=== PATIENT | male | born 1995 | race Caucasian/White ===

== ENCOUNTER 2022-02-24 23:29 | Emergency (ER) | payer OTHER, SELFPAY ==
--- NOTE | ~2022-02-24 | US_ITS ---
US scrotum doppler DATE: 02/25/2022 00:57 INDICATION: Left scrotal pain. No injury. TECHNIQUE: Real-time and color flow imaging and Doppler analysis of the scrotal contents COMPARISON: None FINDINGS: There is homogeneous symmetric echotexture of the testicles. No testicular mass lesion is d etected. There is blood flow to both testicles; no testicular torsion is detected. No hydroceles. Epididymis is normal. Left-sided varicocele is noted with varicose vein diameter up to approximately 3.2 mm.. IMPRESSION: Left varicocele Reviewed, dictated and finalized at [facility]. Reviewed, dictated and finalized at [facility]. IMPRESSION: Left varicocele
[2022-02-24 23:46] VITALS: BP 144/86; PULSE 68; RESP 16; TEMP 36.4; O2SAT 99
[2022-02-25 01:28] VITALS: BP 152/99; PULSE 68; RESP 16; O2SAT 98
[2022-02-25 01:34] LABS: Basophils Percent Auto 0.6 % (0.2-1.2); Eosinophils Absolute Auto 0.5 K/mm3 (0-0.3); Eosinophils Percent Auto 6.6 % (0-4.4); Hematocrit 48.6 % (42.0-52.0); Hemoglobin 16.1 g/dL (14.0-18.0); Immature Granulocyte Absolute 0.01 K/mm3 (0.00-0.031); Immature Granulocyte Percent A 0.1 % (0-0.5); Lymphocytes Absolute Auto 1.99 K/mm3 (0.9-3.2); Lymphocytes Percent Auto 29.1 % (18.3-44.2); Mean Corpuscular HGB Conc 33.1 g/dl (32-36); Mean Corpuscular Hemoglobin 29.1 pg (26-34); Mean Corpuscular Volume 87.9 fl (80-100); Mean Platelet Volume 10.7 fl (7.4-10.4); Monocytes Absolute Auto 0.5 K/mm3 (0.1-0.6); Monocytes Percent Auto 7.8 % (2.6-8.5); Neutrophils Absolute Auto 3.8 K/mm3 (1.3-6.7); Neutrophils Percent Auto 55.8 % (45.5-73.1); Platelet Count Result 218 k/mm3 (150-375); Red Blood Count 5.53 M/mm3 (4.6-6.20); Red Cell Distribution Width 12.6 % (11.5-14.5); White Blood Count 6.8 K/mm3 (4.5-10.0)
[2022-02-25 01:35] LABS: Appearance Urine Clear (Clear); Bilirubin Urine Negative (Negative); Blood Urine Negative (Negative); Color Urine Yellow (Yellow); Glucose Urine UA Negative (Negative); Ketones Urine Negative (Negative); Leukocyte Esterase Ur Negative LEU/UL (Negative); Nitrate Urine Negative (Negative); Protein Urine Negative (Negative); Specific Grav Ur 1.025 (1.001-1.035); Urobilinogen Urine 0.2 mg/dL (<2.0)
[2022-02-25 01:42] LABS: Add Urine Microscopic? NO; Bacteria Urine Trace /hpf; Mucus Urine Rare /lpf; RBC Urine 0-2 /hpf (0-2); WBC Urine 0-3 /hpf
[2022-02-25 01:43] LABS: Alanine Aminotransferase 48 U/L (6-50); Albumin Level 4.7 g/dL (3.5-5.1); Alkaline Phosphatase 73 U/L (38-126); Anion Gap 7 mmol/L (8-16); Aspartate Amino Transferase 43 U/L (17-59); Bilirubin,Total 0.7 mg/dL (0.2-1.3); Blood Urea Nitrogen 14 mg/dL (9-20); Calcium 9.1 mg/dL (8.4-10.2); Carbon Dioxide 28 mmol/L (22-30); Chloride 103 mmol/L (98-107); Estimated CRCL calculation 132 ml/min; Estimated Glomerular Filt Rate > 60; Glucose 91 mg/dL (65-110); Sodium 138 mmol/L (137-145)
[2022-02-25] MEDS: KETOROLAC 30 MG/ML VIAL (*BKC) IV PUSH (02:06)
--- NOTE | 2022-02-25 02:49 | ED.MALEGU ---
HPI - Male Genitourinary General Chief complaint: Urogenital-Male Stated complaint: Testicular pain Time Seen by Provider: 02/24/22 23:59 Source: patient Mode of arrival: ambulatory History of Present Illness HPI Narrative: 26-year-old male presents today with complaints of left testicular pain that started at 830 this evening. Pain rated a 5 out of 10. Patient states he was bending over when he felt pain to the left testicle. Patient denies any fevers, dysuria, urinary frequency, body aches, or chills. Patient denies any known trauma. Related Data Allergies Allergy/AdvReac Type Severity Reaction Status Date / Time haloperidol [From Haldol] AdvReac Other Verified 02/25/22 01:29 Review of Systems Review of Systems: CONSTITUTIONAL: Denies fever, chills, or sweats. EYES: Denies visual changes, redness, or discharge. ENT: Denies rhinorrhea, congestion, sore throat, or otalgia. CARDIOVASCULAR: Denies chest pain, palpitations, or edema. RESPIRATORY: Denies cough or dyspnea. GASTROINTESTINAL: Denies abdominal pain, nausea, vomiting, or diarrhea. GENITOURINARY: Left testicular pain. Denies dysuria or hematuria. SKIN: Denies rash or itching. MUSCULOSKELETAL: Denies back pain, joint pain, or myalgia. NEUROLOGIC: Denies headache, numbness, dizziness, or weakness. PSYCHIATRIC: Denies anxiety or depression. Exam Narrative: GENERAL: Well-appearing, well-nourished, and in no acute distress. HEAD: Normocephalic, atraumatic. EYES: PERRLA and EOMI. ENT: Nares clear, no rhinorrhea or epistaxis. Mucous membranes moist. Oropharynx without tonsillar hypertrophy exudate or other lesions. Bilateral TMs pearly noel nonbulging NECK: Supple. No adenopathy or masses. No carotid bruits or JVD CHEST: Clear to auscultation. No respiratory distress. No wheezes rales or rhonchi HEART: Regular rate and rhythm. No murmur heard. Normal peripheral pulses. ABDOMEN: Soft, nontender, nondistended, normal active bowel sounds. :Left testicle tender to palpation. No erythema noted. EXTREMITIES: Normal range of motion. No edema. SKIN: Warm, dry, no rash. NEURO: No focal deficits. Alert and oriented x3. PSYCH: Normal mood and affect. Course Vital Signs Vital signs: Vital Signs Temperature 36.4 C L 02/24/22 23:46 Pulse Rate 68 02/24/22 23:46 Respiratory Rate 16 02/24/22 23:46 Blood Pressure 144/86 H 02/24/22 23:46 Pulse Oximetry 99 02/24/22 23:46 Temperature 36.4 C L 02/24/22 23:46 Pulse Rate 68 02/25/22 01:28 Respiratory Rate 16 02/25/22 01:28 Blood Pressure 152/99 H 02/25/22 01:28 Pulse Oximetry 98 02/25/22 01:28 MDM - Male Genitourinary MDM Narrative Medical decision making narrative: HPI as noted. Testicular ultrasound shows left variceal, no torsion, no epididymitis, no orchitis. Urine without signs of infection. Patient still with pain after Toradol. He does not want anything stronger due to having drive home. Patient states he does have Vale at home. Patient is more than welcome to use Vale when he gets home. Plan follow-up with urology as soon as possible. Return with any new or worsening symptoms. Differential Diagnosis Differential diagnosis: Likely urinary tract infection, epididymitis, inguinal hernia and other (Testicular torsion) Medical Records Attestation: I reviewed the patient's medical records. Lab Data Attestation: I reviewed the patient's lab results. Result diagrams: 02/25/22 01:28 02/25/22 01:28 Labs: Lab Results 02/25/22 02/25/22 02/25/22 Range/Units 01:28 01:28 01:28 WBC 6.8 (4.5-10.0) K/mm3 RBC 5.53 (4.6-6.20) M/mm3 Hgb 16.1 (14.0-18.0) g/dL Hct 48.6 (42.0-52.0) % MCV 87.9 (80-100) fl MCH 29.1 (26-34) pg MCHC 33.1 (32-36) g/dl RDW 12.6 (11.5-14.5) % Plt Count 218 (150-375) k/mm3 MPV 10.7 H (7.4-10.4) fl Immature Gran % (Auto) 0.1 (0-0.5) % Neut % (Auto) 55.8 (45.5-73.1) % Lymph % (Aut
[2022-02-25 03:02] VITALS: BP 132/90; PULSE 65; RESP 16; TEMP 36.6; O2SAT 99
== END 2022-02-25 03:03 | disposition home or self-care (01) ==
PROVIDERS: Emergency Provider Nurse Practitioner Family
DX: I86.1 Scrotal varices (principal)
CPT/HCPCS: 36415; 76870; 80053; 81003; 85025; 93976; 96374; 99284; J1885

== ENCOUNTER 2023-09-28 04:04 | Emergency (ER) | payer OTHER, SELFPAY ==
--- NOTE | ~2023-09-28 | XR_ITS ---
XR ankle RT min 3V 09/28/2023 06:25 INDICATION: Right ankle pain. PROCEDURE: 3 views right ankle COMPARISON: No prior studies for comparison. FINDINGS: Fracture, dislocation or subluxation is not identified. The soft tissues appear within norm al limits. No foreign bodies are identified. IMPRESSION: 1: NO ACUTE BONE OR JOINT ABNORMALITY IDENTIFIED. Reviewed, dictated and finalized at [facility]
[2023-09-28 04:07] VITALS: BP 131/78; PULSE 60; RESP 18; TEMP 36.9; O2SAT 98
--- NOTE | 2023-09-28 04:51 | ED.GENADULT ---
HPI - General Adult General Chief complaint: Extremity Problem,Nontraumatic Stated complaint: intermitten ankle pain for months Time Seen by Provider: 09/28/23 04:43 History of Present Illness HPI narrative: Patient is a 28-year-old gentleman who presents emerged from with chief complaint of ankle pain. Patient reports that he has been having pain in his right ankle area for the last several months patient states that he is in the process of establishing with a primary care provider and reports that today decided to come to the emergency department as it was hurting a little bit more the patient denies trauma reports the pain is worse with walking and worse whenever he bends his foot forward Related Data Allergies Allergy/AdvReac Type Severity Reaction Status Date / Time haloperidol [From Haldol] AdvReac Other Verified 09/28/23 04:43 Review of Systems Review of Systems: A 10 system review of systems was completed on the patient and is negative except for what is stated in the HPI. Nursing and ancillary documentation was reviewed. Exam Narrative: GENERAL: Well-appearing, well-nourished, and in no acute distress. HEAD: Normocephalic, atraumatic. EYES: PERRLA and EOMI. ENT: Nares clear, no rhinorrhea or epistaxis. Mucous membranes moist. NECK: Supple. CHEST: Clear to auscultation. No respiratory distress. HEART: Regular rate and rhythm. No murmur heard. Normal peripheral pulses. ABDOMEN: Soft, nontender, nondistended, normal active bowel sounds. EXTREMITIES: Normal range of motion. No edema. SKIN: Warm, dry, no rash. NEURO: No focal deficits. Alert and oriented x3. PSYCH: Normal mood and affect. Course Vital Signs Vital signs: Vital Signs Temperature 36.9 C 09/28/23 04:07 Pulse Rate 60 09/28/23 04:07 Respiratory Rate 18 09/28/23 04:07 Blood Pressure 131/78 09/28/23 04:07 Pulse Oximetry 98 09/28/23 04:07 Oxygen Delivery Room Air 09/28/23 04:07 Temperature 36.9 C 09/28/23 04:07 Pulse Rate 60 09/28/23 04:07 Respiratory Rate 18 09/28/23 04:07 Blood Pressure 131/78 09/28/23 04:07 Pulse Oximetry 98 09/28/23 04:07 Oxygen Delivery Room Air 09/28/23 04:07 Medical Decision Making MDM Narrative Medical decision making narrative: differential diagnosis includes sprain, fracture plain film x-rays of the right ankle show no evidence of fracture Vital Signs Vital Signs: Vital Signs Temperature 36.9 C 09/28/23 04:07 Pulse Rate 60 09/28/23 04:07 Respiratory Rate 18 09/28/23 04:07 Blood Pressure 131/78 09/28/23 04:07 Pulse Oximetry 98 09/28/23 04:07 Oxygen Delivery Room Air 09/28/23 04:07 Temperature 36.9 C 09/28/23 04:07 Pulse Rate 60 09/28/23 04:07 Respiratory Rate 18 09/28/23 04:07 Blood Pressure 131/78 09/28/23 04:07 Pulse Oximetry 98 09/28/23 04:07 Oxygen Delivery Room Air 09/28/23 04:07 Discharge Plan Discharge Clinical Impression: Right ankle strain Patient Disposition: Home, Self-Care Condition: Stable Instructions: Antibiotic Form, Ankle Sprain (ED) Follow-up/Referrals: Chance Vargas MD [Physician] - PHYSICIAN,[employer] [Primary Care Provider] - Time of Disposition: 04:59
[2023-09-28] MEDS: ACETAMINOPHEN 500 MG TABLET 1000 MG (05:21)
== END 2023-09-28 05:31 | disposition home or self-care (01) ==
PROVIDERS: Emergency Provider Emergency Medicine
DX: S96.911A Strain of unspecified muscle and tendon at ankle and foot level, right foot, initial encounter (principal); X58.XXXA Exposure to other specified factors, initial encounter
CPT/HCPCS: 73610; 99283; A9270